=== PATIENT | female | born 1990 | race African-American/Black ===

== ENCOUNTER → 2020-08-28 | Emergency (ER) | payer MEDICAID ==
[~2020-08-28] VITALS: Ht 175.3 cm; Wt 71.0 kg
[~2020-08-28] MED LIST: ACETAMINOPHEN 325MG TABLET PO ONE; LORAZEPAM 0.5MG TABLET PO ONE; QUETIAPINE FUMARATE 50MG TABLET PO NR; QUETIAPINE FUMARATE 50MG TABLET PO STA
[2020-08-28 18:23] LABS: CLARITY URINE CLEAR (CLEAR); COLOR URINE YELLOW (YELLOW); KETONES URINE NEGATIVE (NEGATIVE); LEUKOCYTE ESTERASE URINE TRACE (NEGATIVE); NITRITE URINE NEGATIVE (NEGATIVE); OCCULT BLOOD URINE NEGATIVE (NEGATIVE); PROTEIN URINE NEGATIVE (NEGATIVE); SPECIFIC GRAVITY URINE 1.012 (1.005-1.030); UROBILINOGEN URINE 0.2 E.U./dL (0.2-1.0)
[2020-08-28 18:33] LABS: METHADONE URINE SCREEN NEGATIVE (NEGATIVE); OPIATES URINE SCREEN NEGATIVE (NEGATIVE); PHENCYCLIDINE URINE SCREEN NEGATIVE (NEGATIVE)
[2020-08-28 18:34] LABS: *AMPHETAMINES SCREEN URINE NEGATIVE (NEGATIVE); *BARBITURATES SCREEN URINE NEGATIVE (NEGATIVE); *BENZODIAZEPINES SCREEN URINE NEGATIVE (NEGATIVE); *COCAINE SCREEN URINE NEGATIVE (NEGATIVE)
[2020-08-28 18:42] LABS: CANNABINOID URINE SCREEN PRESUMTIVE POSITIVE (NEGATIVE)
[2020-08-28 18:58] LABS: BASOPHILS % 0.6 % (0.0-2.0); EOSINOPHILS % 1.1 % (0.0-5.0); HEMATOCRIT. 30.6 % (36.0-48.0); HEMOGLOBIN. 9.9 g/dL (12.0-16.0); LYMPHOCYTES % 38.2 % (20.0-50.0); MEAN CORPUSCULAR HEMOGLOBIN 25.4 pg (28.0-32.0); MEAN CORPUSCULAR VOLUME 78.5 fL (81.0-99.0); MEAN PLATELET VOLUME 6.5 fl (7.4-10.4); MONOCYTES % 5.6 % (2.0-8.0); NEUTROPHILS % 54.5 % (40.0-76.0); PLATELET 365 x1000/uL (130-400); RED CELL DISTRIBUTION WIDTH 14.3 % (11.6-14.6)
[2020-08-28 19:05] LABS: CHLORIDE 110 mEq/L (98-107)
[2020-08-28 19:09] LABS: ETHANOL BLOOD < 10 mg/dL
[2020-08-30 06:07] VITALS: BP 105/61
== END ==
LOC: ER 17:23
DX: R45.851 Suicidal ideations (principal); F41.9 Anxiety disorder, unspecified; Z88.5 Allergy status to narcotic agent
CPT/HCPCS: 36415; 80053; 80305; 80307; 80320; 80329; 81003; 81025; 85025; 99285; G0480

== ENCOUNTER 2023-08-15 04:10 | Emergency (ER) | payer MEDICAID ==
[~2023-08-15] VITALS: Ht 167.6 cm; Wt 91.0 kg
[2023-08-15 04:11] VITALS: BP 178/122; PULSE 90; RESP 18; TEMP 98.4; O2SAT 99
== END 2023-08-15 04:40 | disposition left against medical advice (07) ==
LOC: ER 04:10
DX: R56.9 Unspecified convulsions (principal); Z53.21 Procedure and treatment not carried out due to patient leaving prior to being seen by health care provider